=== PATIENT | male | born 1985 | race Caucasian/White ===

== ENCOUNTER → 2016-05-03 | Outpatient (CLI) | payer OTHER ==
[2016-05-03 11:55] LABS: DAYS OF ABSTINENCE 4; METHOD OF COLLECTION MASTURBATION; SEMEN COLOR YELLOW-GRAY (GRY/GRYWHTE); SEMEN TIME OF COLLECTION 1048; TYPE OF SPECIMEN CONTAINER STERILE CUP
[2016-05-03 11:56] LABS: SEMEN VOLUME 3.2 ML (>1.5); SPERM VIABILITY STAIN NOT INDICATED % (>58%)
== END | disposition home or self-care (01) ==
LOC: C.LAB 11:33
PROVIDERS: ATTEND Specialist
DX: Z31.41 Encounter for fertility testing (principal); Z11.3 Encounter for screening for infections with a predominantly sexual mode of transmission; Z11.4 Encounter for screening for human immunodeficiency virus [HIV]; Z11.59 Encounter for screening for other viral diseases